=== PATIENT | female | born 1935 | race Caucasian/White ===

== ENCOUNTER 2016-08-01 10:24 | Observation (INO) | payer OTHER, MEDICARE ==
[2016-08-01] MEDS ORDERED: NS 1,000 ML IV ONE (10:48)
--- NOTE | 2016-08-01 10:51 | EDPHY ---
H & P Stated Complaint: off balance as per daughter Time Seen by Provider: 08/01/16 10:35 HPI/ROS: CHIEF COMPLAINT: Imbalance HISTORY OF PRESENT ILLNESS: The patient is an 80-year-old female brought into the emergency department by her daughter. The patient is at [facility] for history of severe dementia. She also has a history of paroxysmal atrial fibrillation and depression. She was started on Bactrim on the of this month for urinary tract infection. Repeat analysis of her urine yesterday was clean. She has not had a fever. She denies having any pain. She has not had any nausea vomiting or diarrhea. No rashes or wounds. No shortness of breath. [facility] called daughter this morning stating that the patient has trouble balancing and almost falls when standing. Patient did not fall or hit the ground. She did not suffer any trauma. She usually walks without a walker but today while standing she tends to tip over in any direction. No nystagmus visible. The patient is without complaints and pleasantly demented. REVIEW OF SYSTEMS: Constitutional: denies: chills, fever, recent illness, recent injury EENTM: denies: blurred vision, double vision, nose congestion Respiratory: denies: cough, shortness of breath Cardiac: denies: chest pain, irregular heart rate, lightheadedness, palpitations Gastrointestinal/Abdominal: denies: abdominal pain, diarrhea, nausea, vomiting, blood streaked stools Genitourinary: denies: dysuria, frequency, hematuria, pain Musculoskeletal: denies: joint pain, muscle pain Skin: denies: lesions, rash, jaundice, bruising Neurological: denies: headache, numbness, paresthesia, tingling, dizziness, weakness Hematologic/Lymphatic: denies: blood clots, easy bleeding, easy bruising Immunologic/allergic: denies: HIV/AIDS, transplant EXAM: GENERAL: Well-appearing, well-nourished and in no acute distress. HEAD: Atraumatic, normocephalic. EYES: No nystagmus, Hallpike maneuver completed with no nystagmus or patient discomfort. Pupils equal round and reactive to light, extraocular movements intact, sclera anicteric, conjunctiva are normal. ENT: TMs normal, nares patent, oropharynx clear without exudates. Moist mucous membranes. NECK: Normal range of motion, supple without lymphadenopathy or JVD. LUNGS: Breath sounds clear to auscultation bilaterally and equal. No wheezes rales or rhonchi. HEART: Regular rate and rhythm without murmurs, rubs or gallops. ABDOMEN: Soft, nontender, normoactive bowel sounds. No guarding, no rebound. No masses appreciated. BACK: No CVA tenderness, no spinal tenderness, step-offs or deformities EXTREMITIES: Normal range of motion, no pitting or edema. No clubbing or cyanosis. NEUROLOGICAL: No pronator drift. Normal cerebellar exam lying in bed. Cranial nerves II through XII grossly intact. Normal speech, normal gait. 5/5 strength, normal movement in all extremities, normal sensation PSYCH: Normal mood, normal affect. SKIN: Warm, dry, normal turgor, no visible rashes or lesions. Source: Patient Exam Limitations: No limitations - Personal History Current Tetanus/Diphtheria Vaccine: Unsure Current Tetanus Diphtheria and Acellular Pertussis (TDAP): Unsure - Medical/Surgical History Hx Asthma: No Hx Chronic Respiratory Disease: No Hx Diabetes: No Hx Cardiac Disease: No Hx Renal Disease: No Hx Cirrhosis: No Hx Alcoholism: No Hx HIV/AIDS: No Hx Splenectomy or Spleen Trauma: No Other PMH: Hx Afib, hysterectomy - Family History Significant Family History: No pertinent family hx - Social History Smoking Status: Never smoked Alcohol Use: Sober Drug Use: None Constitutional: Initial Vital Signs Temperature (C) 37.2 C 08/01/16 10:26 Heart Rate 68 08/01/16 10:26 Respiratory Rate 14 08/01/16 10:26 Blood Pressure 140/81 H 08/01/16 10:26 O2 Sat (%) 92 08/01/16 10:26 O2 Delivery Mode Room Air Allergies/Adverse Reactions: oxycodone [Oxycodone] Allergy (Mild, Verified 04/27/14 03:45) Other-Enter Comments Sulfa (Sulfonamide Antibiotics) Allergy (Mild, Verified 04/27/14 03:45) Rash Home Medications: Medication Instructions Recorded Aspirin [Aspirin 81mg (*)] 81 mg PO DAILY 08/01/16 Sulfamethox/Tmp 800/160 mg 1 tab PO BID 08/01/16 [Bactrim DS] Venlafaxine HCl [Venlafaxine 75MG 150 mg PO DAILY 08/01/16 (*)] traZODone [traZODONE 50MG (*)] 25 mg PO HS PRN 08/01/16 Olanzapine [Zyprexa] 2.5 mg PO Q6H PRN #30 tablet 08/02/16 Ondansetron Odt [Zofran Odt 4 mg 4 mg PO Q4HRS PRN #0 tab 08/02/16 (*)] Venlafaxine HCl [Venlafaxine 75MG 150 mg PO DAILY #0 tab 08/02/16 (*)] Medical Decision Making - Diagnostics Imaging: Results: CT scan of the head was obtained. The results of the study are negative for acute abnormalities, postoperative changes in left ear and mastoid, slightly increased fluid . The study was read by Dr. Mango Shaw. I viewed the images myself on the PACS system. X-ray: chest x-ray was obtained. I viewed the images myself on the PACS system. My interpretation of the images is: Possible retrocardiac infiltrate, poor inspiration. The radiologist interpretation is same. ED Course/Re-evaluation: 12:20 p.m. we discussed the patient's lab and imaging results. I will start treating her for mild pneumonia although she is afebrile and does not have a cough. I discussed the case with Aury Watts who accepts admission for Dr. Hall. She agrees with initiation of antibiotics. Patient's family also agrees. We are still pending urinalysis for partially treated urinary tract infection. 2:05 p.m. when hospital service speaking with the patient she and her daughter told them that she would prefer to be treated at home and that the daughter will stay with her and provide 24 hour care and assistance that she does not fall. They are refusing admission. They are currently trying to call the assisted to see if it can be arranged for someone else to stay with her as well. 2:20 p.m. the patient's family could not arrange 24 hour care and now is agreeable to staying. Differential Diagnosis: Partial list of the Differential diagnosis considered include but were not limited to; infection, electrolyte abnormality, stroke and although unlikely based on the history and physical exam, I also considered hemorrhage, trauma. - Data Points Laboratory Results: Laboratory Results 08/01/16 11:00 08/01/16 11:00 Microbiology Results: MICROBIOLOGY 08/01/16 12:20 Blood Blood Culture - Preliminary Medications Given: Discontinued Medications Albuterol/Ipratropium (Duoneb) 3 ml IH QID [facility] Stop: 01/28/17 15:59 Last Admin: 08/02/16 06:20 Dose: Not Given Aspirin (Aspirin) 81 mg PO DAILY [facility] Stop: 01/29/17 08:59 Last Admin: 08/02/16 08:55 Dose: 81 mg Enoxaparin Sodium (Lovenox) 30 mg SC DAILY [facility] Stop: 01/29/17 08:59 Last Admin: 08/02/16 10:17 Dose: Not Given Sodium Chloride (Ns) 1,000 mls @ 0 mls/hr IV ONCE ONE PRN Reason: Wide Open Stop: 08/01/16 10:49 Last Admin: 08/01/16 11:25 Dose: 1,000 mls Cefepime HCl 2 gm/ Dextrose 100 mls @ 200 mls/hr IV Q8HRS PEBBLES PRN Reason: Protocol Stop: 08/31/16 13:59 Last Admin: 08/01/16 13:29 Dose: 100 mls Dextrose/Sodium Chloride (D5w 1/2 Ns) 1,000 mls @ 75 mls/hr IV CONT [facility] Stop: 01/28/17 13:29 Last Admin: 08/01/16 17:54 Dose: 1,000 mls Cefepime HCl 2 gm/ Dextrose 100 mls @ 200 mls/hr IV Q12H PEBBLES PRN Reason: Protocol Stop: 09/01/16 01:59 Last Admin: 08/02/16 02:54 Dose: 100 mls Venlafaxine HCl (Venlafaxine Hcl) 150 mg PO DAILY [facility] Stop: 01/29/17 08:59 Last Admin: 08/02/16 08:55 Dose: 150 mg Departure - Departure Disposition: [facility] Acute Clinical Impression: Weakness Condition: Fair
--- NOTE | 2016-08-01 10:53 | CPEKG ---
Heart Rate: 60 RR Interval: 1000 P-R Interval: 156 QRSD Interval: 92 QT Interval: 436 QTC Interval: 436 P Henderson: 10 QRS Henderson: -30 T Wave Henderson: 41 EKG Severity - BORDERLINE ECG - EKG Impression: SINUS RHYTHM EKG Impression: LEFT AXIS DEVIATION EKG Impression: CONSIDER ANTERIOR INFARCT Electronically Signed By: Remi Martin 01-Aug-2016 11:05:04
[2016-08-01 11:15] LABS: % IMMATURE GRANULYOCYTES 0.5 % (0.0-1.1); ABSOLUTE IMMATURE GRANULOCYTES 0.03 10^3/uL (0.00-0.10); ADD DIFF? NO; ADD MORPH? NO; ADD SCAN? NO; ATYPICAL LYMPHOCYTE FLAG 0 (0-99); FRAGMENT RBC FLAG 0 (0-99); HEMATOCRIT 39.2 % (38.0-47.0); HEMOGLOBIN 13.2 g/dL (12.6-16.3); LEFT SHIFT FLG 0 (0-99); LIPEMIA HEMOLYSIS FLAG 80 (0-99); MEAN CELL HEMOGLOBIN 30.3 pg (27.9-34.1); MEAN CELL HEMOGLOBIN CONCENTR. 33.7 g/dL (32.4-36.7); MEAN CELL VOLUME 90.1 fL (81.5-99.8); PLATELET CLUMPS FLAG 0 (0-99); PLATELET COUNT 188 10^3/uL (150-400); RED BLOOD CELL COUNT 4.35 10^6/uL (4.18-5.33); RED CELL DISTRIBUTION WIDTH 12.8 % (11.5-15.2)
[2016-08-01 11:24] LABS: ANION GAP 8 mEq/L (8-16); CALCIUM 9.4 mg/dL (8.5-10.4); CARBON DIOXIDE 29 mEq/l (22-31); CHLORIDE 105 mEq/L (97-110); GLOMERULAR FILTRATION RATE 53; GLUCOSE 112 mg/dL (70-100); POTASSIUM 4.2 mEq/L (3.5-5.2); SODIUM 142 mEq/L (134-144)
--- NOTE | 2016-08-01 11:56 | DX ---
PA and lateral chest. August 01, 2016. Clinical History: Cough, possible pneumonia. Comparison Study: April 27, 2014. Findings: Incomplete inspiratory effort. On the lateral radiograph, there is poorly defined opacity i n the retrocardiac space, which could represent overlap of incompletely aerated structures or early f ocal retrocardiac pneumonia. Mild diffuse interstitial thickening. Cardiac silhouette is borderline p rominent.. Impression: Incomplete inspiration. Equivocal retrocardiac infiltrate..
--- NOTE | 2016-08-01 12:18 | CT ---
CT Brain (Without Contrast) at 1112 hours History: Altered mental status. Previous left mastoid surgery. Comparison: Prior studies from 2008, 2011 and 2012. Technique: Axial computed tomographic images of the brain without contrast. Dose reduction techniques were utilized. Findings: Ventricles, cisterns, and sulci are widened consistent with atrophy. No hydrocephalus, mid line shift/herniation, or epidural/subdural hematomas. No acute intraparenchymal hemorrhage or mass e ffect. Cerebrovascular atherosclerosis. Hypodensities in the white matter of bilateral cerebral hemis pheres. Bone windows demonstrate no displaced fractures. Paranasal sinuses are clear. Previous left mastoidectomy with destruction of the left middle ear ossicles again noted. There is increased soft t issue in the left middle ear and left mastoid surgical site when compared to previous CT from 2008. Impression: 1. Moderate atrophy. 2. No acute hemorrhage, hydrocephalus, or mass effect. 3. Cerebrovascular atherosclerosis. 4. No definite acute infarct. 5. Moderate microvascular ischemic gliosis. 6. Increased soft tissue in the left mastoidectomy site and left middle ear since 2008. Please clinic ally correlate for possible infection or developing granulation tissue. 7.Consider MRI of the brain without and with contrast enhancement, if there is continued clinical con cern. Findings and recommendations discussed with Emergency Department physician, Dr. Remi Martin at 1135 hours today. Final report concurs with initial preliminary interpretation.
[2016-08-01] MEDS ORDERED: ONDANSETRON DISINTEGRATING 4 MG TAB PO PRN (13:23)
[2016-08-01] MEDS ORDERED: ACETAMINOPHEN 325 MG TAB PO PRN (13:23)
[2016-08-01] MEDS ORDERED: IBUPROFEN 200 MG TAB PO PRN (13:23)
[2016-08-01] MEDS ORDERED: ONDANSETRON 4 MG/2 ML VIAL IVP PRN (13:23)
[2016-08-01] MEDS ORDERED: D5W 1/2 NS 1,000 ML IV SCH (13:30)
[2016-08-01] MEDS ORDERED: CEFEPIME HCL 2 GM in D5W 100 ML IV SCH ×2 (14:00→22:00)
[2016-08-01] MEDS ORDERED: traZODone 50 MG TAB PO PRN (14:53)
[2016-08-01] MEDS ORDERED: ALPRAZolam 0.25 MG TAB PO PRN (14:53)
--- NOTE | 2016-08-01 15:33 | GHP ---
[f rep st] HISTORY AND PHYSICAL DATE OF ADMISSION: 08/01/2016 CHIEF COMPLAINT: Generalized weakness. HISTORY OF PRESENT ILLNESS: The patient is an 80-year-old female who resides at [facility]. She has a history of severe dementia. In the last 24 hours, the patient has developed increasing weakness with the inability to ambulate independently. The patient's severe dementia nelson its me any from obtaining history from her directly. However, her daughter is present at the bedside and information is obtained from her as well as the patient's hospital chart. The patient does have a history of paroxysmal atrial fibrillation as well as mild depression. She was recently started on Bactrim for a urinary tract infections. The patient through the daughter's interpretation denies an y nausea, vomiting, or diarrhea. Denies any fever, sweats, or night chills. She denies any dyspnea, shortness of breath, or chest pain. REVIEW OF SYSTEMS: Comprehensive 10-point review of systems was unable to be completed secondary to the patient's severe dementia. PAST MEDICAL HISTORY: Paroxysmal atrial fibrillation. PAST SURGICAL HISTORY: Hysterectomy. FAMILY HISTORY: None. SOCIAL HISTORY: The patient has never smoked. She denies alcohol. She resides at the [facility]. Her daughter lives locally. ALLERGIES: 1. Oxycodone. 2. Sulfa. MEDICATIONS: Bactrim, trazodone, Xanax, Effexor, aspirin. PHYSICAL EXAM: GENERAL: The patient is alert, not oriented to time or place. VITAL SIGNS: Afebril e, 36.9, pulse is 68, respiratory rate is 18, blood pressure is 149/75. She is saturating 94% on gio m air. HEENT: Normocephalic, atraumatic. Mucous membranes are moist. Pupils equal, round, reactiv e to light. LUNGS: Decreased in the bases bilaterally. No rhonchi or wheezes appreciated. CARDIOV ASCULAR: The patient has a sinus rhythm. S1 and S2. GASTROINTESTINAL: Bowel sounds are positive. Soft and nontender. There is no guarding or rigidity noted. EXTREMITIES: Without clubbing or cyano sis appreciated. There is trace edema bilaterally. SKIN: Without rashes or lesions. LABORATORY DATA: CBC and metabolic panel are essentially benign. RADIOLOGICAL STUDIES: Chest x-ray noting a retrocardiac infiltrate. CT of the head with no acute ab normality identified. ASSESSMENT AND PLAN: The patient is an 80-year-old female who has severe dementia and resides at [facility]. She presented today with increasing weakness and inability to ambulat e independently. She will be admitted to the hospital for further evaluation. The etiology of this weakness is unclear at this time. However, she does appear to have a possible pneumonia on chest x-r ay. However, she is afebrile. She is saturating appropriately on room air and does not have an elev ated white count. Having said that, the patient is on Bactrim for recent a urinary tract infection, and we will follow a urine evaluation during this hospitalization. I have discussed the plan of care with the patient's daughter. She wishes for the patient to be able to return to [facility] as soon as possible as it is likely going to increase her anxiety level being out of her normal environm ent. Physical therapy and occupational therapy will evaluate the patient during this hospitalization . Further action will be taken as needed during the patient's hospital course. /[id number]/MODL
[2016-08-01] MEDS: IPRATROPIUM/ALBUTEROL 3 ML DEYVIAL IH SCH ×2 (16:39→21:28)
[2016-08-01] MEDS ORDERED: SULFAMETHOX/TMP 800/160 MG 1 TAB PO SCH (21:00)
[2016-08-02] MEDS ORDERED: CEFEPIME HCL 2 GM in D5W 100 ML IV SCH (02:00)
[2016-08-02] MEDS: IPRATROPIUM/ALBUTEROL 3 ML DEYVIAL IH SCH (06:20)
[2016-08-02] MEDS ORDERED: VENLAFAXINE HCL 75 MG TAB PO SCH (09:00)
[2016-08-02] MEDS ORDERED: ENOXAPARIN 30 MG/0.3 ML SYR SC SCH (09:00)
[2016-08-02] MEDS ORDERED: VENLAFAXINE XR 75 MG CAP PO SCH (09:00)
[2016-08-02] MEDS ORDERED: ASPIRIN 81 MG CHEWABLE TAB PO SCH (09:00)
--- NOTE | 2016-08-02 10:11 | PDIAF ---
- Diagnosis Diagnosis: dementia Code Status: Do Not Resuscitate - Medication Management Discharge Medications: Medications to Continue on Transfer Aspirin [Aspirin 81mg (*)] 81 mg PO DAILY 08/01/16 [Last Taken 08/01/16] Sulfamethox/Tmp 800/160 mg [Bactrim DS] 1 tab PO BID 08/01/16 [Last Taken ] Venlafaxine HCl [Venlafaxine 75MG (*)] 150 mg PO DAILY 08/01/16 [Last Taken ] traZODone [traZODONE 50MG (*)] 25 mg PO HS PRN 08/01/16 [Last Taken 07/31/16] Olanzapine [Zyprexa] 2.5 mg PO Q6H PRN #30 tablet 08/02/16 [Last Taken Unknown] Ondansetron Odt [Zofran Odt 4 mg (*)] 4 mg PO Q4HRS PRN #0 tab 08/02/16 [Last Taken Unknown] Venlafaxine HCl [Venlafaxine 75MG (*)] 150 mg PO DAILY #0 tab 08/02/16 [Last Taken Unknown] Discharge Medications: Refer to the Discharge Home Medication list for PRN reason. - Orders Services needed: Registered Nurse, Certified Spinning And Winding Supervisor, Physical Therapy, Occupational Therapy Diet Recommendation: no restrictions on diet - Follow Up Care Current Providers and Referrals: Gabi Gavin MD [Primary Care Provider] - As per Instructions
[2016-08-02 11:32] VITALS: BP 140/80; PULSE 72; RESP 18; TEMP 97.3; O2SAT 94
--- NOTE | 2016-08-02 18:22 | GDS ---
[f rep st] DISCHARGE SUMMARY DISCHARGE DIAGNOSES: 1. Weakness of unclear etiology, which has resolved. 2. Advanced dementia. 3. Paroxysmal atrial fibrillation. 4. History of urinary tract infection. HISTORY: For details, please see dictated history and physical dated in August 01, [address] Jeff Watts, nurse practitioner. In brief, Ms. Alexander is an 80-year-old with severe dementia who res ides at [facility], who presented to the emergency department d ue to difficulty with ambulation. She had recently been treated for a urinary tract infection, thoug h she was afebrile without obvious urinary symptoms here. She has normal labs, negative influenza bu t, due to concern for her weakness, she was admitted to the hospital for further management. HOSPITAL COURSE: Patient was admitted to the med/surg unit. She was started on IV cefepime due to s ome concern for pneumonia; however, clinically she had no fever, cough, or respiratory symptoms sugge stive of pneumonia. Urinalysis was not obtained during this hospitalization. She will complete her outpatient course. I do query if some of her symptoms may be related to her medications. She has re cently been weaning off her Xanax and I am going to go ahead and discontinue this on discharge in fav or of p.r.n. Zyprexa for agitation if needed. She will have close followup with her outpatient [facility] physician. DISPOSITION: Patient is discharged to [facility] in stable con dition. DISCHARGE MEDICATIONS: Please see [employer] for complete updated outpatient medication list. New med ications on discharge: Zyprexa 2.5 mg p.o. q.6 hours p.r.n., #30, no refills. Discontinued medicati ons on discharge: Xanax. She will continue all of her other medications as directed. FOLLOWUP: Dr. Gabi Gavin, primary care provider. /[id number]/MODL
== END 2016-08-02 11:21 ==
LOC: F3E 15:27
PROVIDERS: ADMIT Student in an Organized Health Care Education/Training Program; ATTEND Hospitalist
DX: R53.1 Weakness (principal); F03.90 Unspecified dementia, unspecified severity, without behavioral disturbance, psychotic disturbance, mood disturbance, and anxiety; I48.0 Paroxysmal atrial fibrillation; N39.0 Urinary tract infection, site not specified
CPT/HCPCS: 70450; 71020; 93005; 96360; 99285; G0378; J0692; J1650

== ENCOUNTER 2017-03-29 14:08 | Emergency (ER) | payer OTHER, MEDICARE ==
[2017-03-29 14:17] VITALS: PULSE 68; O2SAT 92
--- NOTE | 2017-03-29 14:21 | EDPHY ---
H & P Time Seen by Provider: 03/29/17 14:08 HPI/ROS: CHIEF COMPLAINT: Head injury, mechanical fall HISTORY OF PRESENT ILLNESS: 81-year-old female arrives via ambulance, not a trauma activation, after she states that she was walking in the park, tripped on the sidewalk, sustained a mechanical fall impacting her left forehead. No loss of consciousness. No amnesia. No headache. No nausea or vomiting. No anticoagulant use. No midline C-spine pain. No peripheral paresthesia, weakness, numbness. No syncopal episodes. PRIMARY CARE PROVIDER: REVIEW OF SYSTEMS: A ten point review of systems was performed and is negative with the exception of the items mentioned in the HPI PAST MEDICAL/SURGICAL HISTORY: no anticoagulant use, mild dementia according to [facility] records SOCIAL HISTORY: denies alcohol use at time of incident. Lives in [facility] PHYSICAL EXAM 1) GENERAL: Well-developed, well-nourished, alert and oriented. Appears to be in no acute distress. Answering questions appropriately. 2) HEAD: Normocephalic, 2.5 cm left frontal laceration 3) HEENT: Pupils equal, round, reactive to light bilaterally. Negative Horners. Nasopharynx, oropharynx, clear. No deformity or angulation of nose. No septal hematoma. No rhinorrhea. No oral trauma. Ears bilaterally with normal tympanic membranes. No hemotympanum. No fluid or blood in the external auditory canal. No raccoon eyes. No Hirsch sign. Teeth are normally aligned with no gross malocclusion, TMJ bilaterally nontender, facial bones nontender including the zygomatic arch, maxilla mandible. 4) NECK: Cervical collar is on.Cervical collar is removed while holding inline traction and patient is unable to completely differentiate between true midline pain versus just lateral of midline pain.Cervical collar is replaced at that point. 5) LUNGS: Clear to auscultation bilaterally, no wheezes, no rhonchi, no retractions. No obvious signs of trauma. No chest wall pain. No flaring, no grunting. Moving symmetrically. No crepitus. 6) HEART: Regular rate and rhythm, 7) ABDOMEN: No guarding, no rebound, no focal tenderness, no peritoneal signs, no signs of trauma, no ecchymosis 8) MUSCULOSKELETAL: Moving all extremities, no focal areas of tenderness, no obvious trauma. 9) BACK: No midline vertebral tenderness, no fluctuance, no step-off, no obvious trauma, no visual or palpable abnormality. 10) SKIN: left frontal laceration DIFFERENTIAL DIAGNOSIS: [ Not necessarily in any particular order, my differential diagnosis includes, but is not limited to, concussion, skull fracture, intraparenchymal contusion, subarachnoid, subdural and epidural hematoma. The patient understands that this diagnosis is provisional and can never be 100% accurate. - Medical/Surgical History Hx Asthma: No Hx Chronic Respiratory Disease: No Hx Diabetes: No Hx Cardiac Disease: No Hx Renal Disease: No Hx Cirrhosis: No Hx Alcoholism: No Hx HIV/AIDS: No Hx Splenectomy or Spleen Trauma: No Other PMH: Hx Afib, hysterectomy - Social History Smoking Status: Never smoked Constitutional: Initial Vital Signs Temperature (C) 36 C 03/29/17 14:15 Heart Rate 68 03/29/17 14:15 Respiratory Rate 18 03/29/17 14:15 Blood Pressure 141/89 H 03/29/17 14:15 O2 Sat (%) 92 03/29/17 14:15 O2 Delivery Mode Room Air Allergies/Adverse Reactions: oxycodone [Oxycodone] Allergy (Mild, Verified 04/27/14 03:45) Other-Enter Comments Sulfa (Sulfonamide Antibiotics) Allergy (Mild, Verified 04/27/14 03:45) Rash Home Medications: Medication Instructions Recorded Aspirin [Aspirin 81mg (*)] 81 mg PO DAILY 08/01/16 Sulfamethox/Tmp 800/160 mg 1 tab PO BID 08/01/16 [Bactrim DS] Venlafaxine HCl [Venlafaxine 75MG 150 mg PO DAILY 08/01/16 (*)] traZODone [traZODONE 50MG (*)] 25 mg PO HS PRN 08/01/16 OLANZapine [Zyprexa] 2.5 mg PO Q6H PRN #30 tablet 08/02/16 Ondansetron Odt [Zofran Odt 4 mg 4 mg PO Q4HRS PRN #0 tab 08/02/16 (*)] Venlafaxine HCl [Venlafaxine 75MG 150 mg PO DAILY #0 tab 08/02/16 (*)] Medical Decision Making - Diagnostics Imaging Results: Imaging Impressions Cervical Spine CT 03/29/17 14:16 Impression: 1. No acute fracture or soft tissue swelling. 2. Severe degenerative disk disease at C5-C6 and C6-C7. 3. If the patient has persistent pain or neurologic deficits, consider cervical spine MRI. Findings discussed with Emergency Department physician's infertility medical assistant, Courtney Mcrae, at 1454 hours 03/29/2017. Head CT 03/29/17 14:16 Impression: 1. No acute fracture or intercranial hemorrhage. 2. Left temporal scalp laceration. No hematoma or foreign body. Findings discussed with Emergency Department physician's infertility medical assistant, Courtney Mcrae, at 1454 hours 03/29/2017. Images reviewed by myself Procedures: Procedure: Laceration repair with tissue adhesive Verbal consent was obtained from the patient. The 2.5 cm laceration on the left forehead. The wound was scrubbed and explored to its base with a gloved finger. No foreign body seen, no foreign bodies palpated. There were no deep structures involved. The wound was repaired with tissue adhesive. The procedure was performed by myself. Patient has been informed that scarring will occur, although every effort has been made to minimize this. ED Course/Re-evaluation: 2:16 pm: Head CT ordered in this patient for trauma for the following indication : greater than 65 years old. 2:56 p.m.: Discussed with patient her negative CT imaging showing no posttraumatic sequelae. chronic disease manager has spoke with the patient as well. Patient feels comfortable being discharged back to [facility]. chronic disease manager has spoke with Douglas Frye as well. 3:05 p.m.: Re-evaluation, patient's daughters in the room states that she is mentating at her baseline. Patient would like to be discharged. Daughter will take patient home. Patient feels safe being discharged home. Usual customary head injury precautions instructions provided. Departure - Departure Disposition: Home, Routine, Self-Care Clinical Impression: Left forehead laceration Dementia Qualifiers: Dementia type: unspecified type Dementia behavioral disturbance: without behavioral disturbance Qualified Code(s): F03.90 - Unspecified dementia without behavioral disturbance Head injury Qualifiers: Encounter type: initial encounter Qualified Code(s): S09.90XA - Unspecified injury of head, initial encounter Condition: Good Instructions: Laceration (ED), Head Injury (ED), Skin Adhesive Care (ED) Additional Instructions: ALTHOUGH THERE IS NO EVIDENCE OF SERIOUS HEAD INJURY AT THIS TIME, DELAYED SIGNS CAN APPEAR 24 TO 48 HOURS AFTER INJURY. WE RECOMMEND THAT YOU DESIGNATE A FRIEND OR FAMILY MEMBER TO OBSERVE YOU OVER THE NEXT FEW DAYS TO ENSURE THAT YOUR CONDITION IS PROGRESSING NORMALLY. PLEASE RETURN TO THE EMERGENCY DEPARTMENT (ED) IMMEDIATELY IF YOU HAVE INCREASED HEADACHE, PERSISTENT HEADACHE , VOMITING, WEAKNESS, CONFUSION OR VISUAL PROBLEMS. WE RECOMMEND THAT YOU DO NOT RESUME CONTACT SPORTS OR ACTIVITIES THAT TAKE COORDINATION OR BALANCE SUCH SKIING OR RIDING A BICYCLE UNTIL CLEARED TO DO SO BY YOUR DOCTOR OR BY A NEUROLOGIST. Referrals: Patient,NotPresent [Primary Care Provider] - As per Instructions
[2017-03-29] MEDS ORDERED: SKIN ADHESIVE (DERMABOND) 1 EACH TP ONE (14:38)
[2017-03-29 15:39] VITALS: BP 132/82; RESP 16; TEMP 98.6
== END 2017-03-29 15:45 | disposition home or self-care (01) ==
LOC: EDUNIT#
PROC: 0HQ1XZZ Repair Face Skin, External Approach (ICD-10-PCS; principal; 2017-03-29)
DX: S01.81XA Laceration without foreign body of other part of head, initial encounter (principal); F03.90 Unspecified dementia, unspecified severity, without behavioral disturbance, psychotic disturbance, mood disturbance, and anxiety; Z79.82 Long term (current) use of aspirin; W01.0XXA Fall on same level from slipping, tripping and stumbling without subsequent striking against object, initial encounter; Y92.830 Public park as the place of occurrence of the external cause; Y99.8 Other external cause status; Y93.01 Activity, walking, marching and hiking

== ENCOUNTER 2017-06-30 17:07 | Emergency (ER) | payer OTHER, MEDICARE ==
[2017-06-30 17:17] VITALS: TEMP 98.2; O2SAT 92
--- NOTE | 2017-06-30 17:18 | EDPHY ---
H & P Time Seen by Provider: 06/30/17 17:09 HPI/ROS: CHIEF COMPLAINT: Nose bleed Limitations: dementia, pt unable to provide any history; history by EMS HISTORY OF PRESENT ILLNESS: The patient is an 81 y/o female with a history of atrial fibrillation and dementia arriving via EMS complaining of a nose bleed. Onset of epistaxis left nares this morning, intermittent since then. The nosebleed stops, but then she picks at her nose and the bleeding recurs. No syncope, no known prior severe epistaxis, no anticoagulation. No recent illness. REVIEW OF SYSTEMS: unable to determine Past Medical/Surgical History: Atrial fibrillation, dementia, depression, diverticulitis, GERD, hysterectomy Social History: Lives at [facility], single, retired Smoking Status: Never smoked Physical Exam: General Appearance: Alert, pleasant Eyes: Pupils equal and round, no conjunctival pallor ENT, Nose: dried blood around both nares, left anterior septum--prominent vessel , no active bleeding Mouth: Mucous membranes moist, no blood in oropharynx Neck: Normal inspection Respiratory: Lungs are clear to auscultation Cardiovascular: Regular rate and rhythm Gastrointestinal: Abdomen is soft and non-tender Neurological: alert, oriented to self, nonfocal exam Skin: Warm and dry Extremities: normal inspection Psychiatric: Mood and affect normal Constitutional: Initial Vital Signs Temperature (C) 36.8 C 06/30/17 17:14 Heart Rate 78 06/30/17 17:14 Respiratory Rate 18 06/30/17 17:14 Blood Pressure 125/89 H 06/30/17 17:14 O2 Sat (%) 92 06/30/17 17:14 O2 Delivery Mode Room Air Allergies/Adverse Reactions: oxycodone [Oxycodone] Allergy (Mild, Verified 06/30/17 17:13) Other-Enter Comments Sulfa (Sulfonamide Antibiotics) Allergy (Mild, Verified 06/30/17 17:13) Rash Home Medications: Medication Instructions Recorded Aspirin [Aspirin 81mg (*)] 81 mg PO DAILY 08/01/16 Venlafaxine HCl [Venlafaxine 75MG 150 mg PO DAILY 08/01/16 (*)] traZODone [traZODONE 50MG (*)] 25 mg PO HS PRN 08/01/16 OLANZapine [Zyprexa] 2.5 mg PO Q6H PRN #30 tablet 08/02/16 Ondansetron Odt [Zofran Odt 4 mg 4 mg PO Q4HRS PRN #0 tab 08/02/16 (*)] Venlafaxine HCl [Venlafaxine 75MG 150 mg PO DAILY #0 tab 08/02/16 (*)] Senna-Docusate Sodium Tablet 06/30/17 Medical Decision Making ED Course/Re-evaluation: The patient is an 81 y/o male with a history of atrial fibrillation and dementia arriving via EMS presenting with epistaxis. There is also a prominent vessel on the left septum without any active bleeding. She is actively picking at her nose. Multiple verbal reminders to avoid touching the nose. Although the bleeding has stopped, concern for recurrent bleeding with touching nose. Will cauterize and place anterior nasal packing. 1835: Lidocaine on cotton ball for anesthesia, then applied silver nitrate to the prominent vessel on the left septum, followed by an anterior Merocel pack. No recurrent bleeding. Differential Diagnosis: includes though not limited to severe anemia, posterior epistaxis, bleeding disorder - Data Points Medications Given: Discontinued Medications Silver Nitrate/Potassium Nitrate (Silver Nitrate Applicator) 1 each TP EDNOW ONE Stop: 06/30/17 17:46 Last Admin: 06/30/17 17:46 Dose: 1 each Departure - Departure Disposition: Home, Routine, Self-Care Clinical Impression: Anterior epistaxis Condition: Good Instructions: Nosebleed (ED) Additional Instructions: Try to keep hands away from nose. Followup in 2 days for packing removal. If bleeding occurs, place nasal clip in place for 15 minutes. If bleeding continues, return to the ED. Return to emergency department for fever, recurrence of bleeding, packing dislodgment or other concerns. Referrals: Omar Sanchez MD [Medical Doctor] - As per Instructions Leoncio Cha MD [Medical Doctor] - As per Instructions Report Scribed for: Karissa Guerrero Report Scribed by: Trudi Griggs Date of Report: 06/30/17 Time of Report: 17:17 Physician Review and Approval Statement: 06/30/17 17:17 Portions of this note were transcribed by a certified ophthalmic medical technician. I personally performed a history, physical exam, medical decision making, and confirmed accuracy of information the transcribed note.
[2017-06-30] MEDS ORDERED: SILVER NITRATE APPLICATOR 1 APPL TP ONE ×2 (17:36→17:45)
[2017-06-30 18:09] VITALS: BP 130/99; PULSE 99; RESP 16
== END 2017-06-30 18:31 | disposition home or self-care (01) ==
LOC: EDUNIT#
PROC: 2Y41X5Z Packing of Nasal Region using Packing Material (ICD-10-PCS; principal; 2017-06-30)
DX: R04.0 Epistaxis (principal); Z79.82 Long term (current) use of aspirin